=== PATIENT | female | born 1980 | race Caucasian/White ===

== ENCOUNTER 2017-04-22 12:29 | Outpatient (CLI) | payer OTHER ==
[2017-04-22 12:59] LABS: BASOPHILS # (AUTO) 0.1 10^3/uL (0.0-0.1); BASOPHILS % (AUTO) 0.6 %; EOSINOPHILS # (AUTO) 0.1 10^3/uL (0.0-0.7); EOSINOPHILS % (AUTO) 1.4 %; LYMPHOCYTES % (AUTO) 21.9 %; MEAN CORPUSCULAR HEMOGLOBIN 30.5 pg (27.0-31.0); MEAN CORPUSCULAR HGB CONC 34.6 g/dL (32.0-36.0); MEAN PLATELET VOLUME 8.8 fL (7.9-10.8); MONOCYTES # (AUTO) 0.6 10^3/uL (0.0-1.0); MONOCYTES % (AUTO) 6.3 %; NEUTROPHILS # (AUTO) 6.5 10^3/uL (1.5-6.6); NEUTROPHILS % (AUTO) 69.8 %; PLT - PLATELET COUNT 226 10^3/uL (130-450); RED BLOOD COUNT 4.25 10^6/uL (4.20-5.40); RED CELL DISTRIBUTION WIDTH 12.6 % (12.0-15.0); WHITE BLOOD COUNT 9.3 x10^3/uL (4.8-10.8)
[2017-04-22 13:03] LABS: BILIRUBIN,URINE NEGATIVE (NEGATIVE); GLUCOSE, URINE (UA) NEGATIVE (NEGATIVE); KETONES,URINE (UA) NEGATIVE (NEGATIVE); LEUKOCYTE ESTERASE, URINE NEGATIVE (NEGATIVE); NITRITE,URINE NEGATIVE (NEGATIVE); OCCULT BLOOD,URINE NEGATIVE (NEGATIVE); PROTEIN,URINE NEGATIVE (NEGATIVE); UROBILINOGEN,URINE 0.2 (NORMAL) E.U./dL (NORMAL)
[2017-04-22 13:10] LABS: CLARITY,URINE CLEAR (CLEAR)
[2017-04-22 13:11] LABS: BACTERIA,URINE Rare /HPF (None Seen); RBC,URINE 0-5 /HPF (0-5); SQUAMOUS EPITHELIAL CELL,UR MANY Squamous (<= Few)
[2017-04-23 13:21] LABS: HIV AG/AB 4TH GEN NON-REACTIVE (NON-REACTIVE)
[2017-04-23 13:36] LABS: HEPATITIS B SURFACE ANTIGEN NON-REACTIVE (NON-REACTIVE)
== END 2017-04-22 12:30 | disposition home or self-care (01) ==
LOC: LAB 12:29
PROVIDERS: ATTEND Nurse Practitioner Obstetrics & Gynecology
DX: O09.521 Supervision of elderly multigravida, first trimester (principal); Z36.9 Encounter for antenatal screening, unspecified
CPT/HCPCS: 36415; 81001; 81599; 85025; 86592; 86762; 86850; 86900; 86901; 87340; 87389

== ENCOUNTER 2017-05-04 10:32 | Outpatient (CLI) | payer SELFPAY | END 2017-05-04 10:33 | disposition home or self-care (01) | LOC: LAB 10:32 | DX: Z36.9 Encounter for antenatal screening, unspecified (principal); O09.521 Supervision of elderly multigravida, first trimester ==

== ENCOUNTER 2017-07-12 07:34 | Outpatient (CLI) | payer OTHER ==
--- NOTE | 2017-07-12 11:25 | Ultrasound Report ---
OB ULTRASOUND: 07/12/2017 CLINICAL INDICATION: anatomy. TECHNIQUE: Real-time scanning was performed with dermatology sales representative static images obtained. LAST MENSTRUAL PERIOD: --unsure Clinical Age: -- US Age: 22 weeks 0 days EFW Hadlock: 488 grams EFW% Hadlock: -- Heart Rate: 137 bpm EDC: -- US EDC: 11/15/2017 BPD Hadlock: 21 weeks 3 days; Mean mm 51 HC Hadlock: 21 weeks 5 days; Mean mm 194 AC Hadlock: 22 weeks 5 days; Mean mm 178 FL Hadlock: 21 weeks 6 days; Mean mm 37 Presentation: variable Placental Location: posterior Cervical Length: TA 4.8 cm Amniotic Fluid: BOSTON 17.0 cm; subjectively normal; MVP 4.9 cm FINDINGS There is a single viable intrauterine gestation, in variable position. heart rate is 137 BPM. The placenta is posterior, without evidence of previa. Amniotic fluid volume is subjectively normal, with the deepest pocket of 4.9 cm. By size, the fetus measures 22 weeks 0 days (uncertain LMP). The following anatomic structures were visualized and appear normal: The intracranial contents, including the ventricles and posterior fossa; the lips and orbits; the spine; the heart, including 4 chamber view and outflow tracts, and diaphragm; the abdominal contents, including the stomach, the bilateral kidneys, and urinary bladder, as well as a normal 3 vessel cord insertion; 4 limbs. No free fluid or adnexal lesion is appreciated. IMPRESSION: SINGLE VIABLE INTRAUTERINE GESTATION, MEASURING 22 WEEKS 0 DAYS BY SIZE. NORMAL ANATOMIC SURVEY. TD: 07/12/2017 10:13 [facility]
== END 2017-07-12 07:35 | disposition home or self-care (01) ==
LOC: DI 07:34
PROVIDERS: ATTEND Nurse Practitioner Obstetrics & Gynecology
DX: Z36.0 Encounter for antenatal screening for chromosomal anomalies (principal); Z3A.22 22 weeks gestation of pregnancy
CPT/HCPCS: 76811

== ENCOUNTER 2017-08-09 08:14 | Outpatient (CLI) | payer OTHER ==
[2017-08-09 09:38] LABS: HGB - HEMOGLOBIN 11.2 g/dL (12.0-16.0); MEAN CORPUSCULAR HEMOGLOBIN 31.4 pg (27.0-31.0); MEAN CORPUSCULAR HGB CONC 34.5 g/dL (32.0-36.0); MEAN CORPUSCULAR VOLUME 91.1 fL (81.0-99.0); MEAN PLATELET VOLUME 9.1 fL (7.9-10.8); RED BLOOD COUNT 3.56 10^6/uL (4.20-5.40); RED CELL DISTRIBUTION WIDTH 13.2 % (12.0-15.0); WHITE BLOOD COUNT 9.8 x10^3/uL (4.8-10.8)
== END 2017-08-09 08:15 | disposition home or self-care (01) ==
LOC: LAB 08:14
PROVIDERS: ATTEND Registered Nurse
DX: Z34.82 Encounter for supervision of other normal pregnancy, second trimester (principal)
CPT/HCPCS: 36415; 82950; 85027; 86850

== ENCOUNTER 2017-10-14 10:44 | Outpatient (CLI) | payer OTHER | END 2017-10-14 10:45 | disposition home or self-care (01) | LOC: LAB.R 10:44 | PROVIDERS: ATTEND Registered Nurse | DX: Z34.83 Encounter for supervision of other normal pregnancy, third trimester (principal) | CPT/HCPCS: 87081 ==

== ENCOUNTER 2017-11-04 10:42 | Outpatient (CLI) | payer OTHER | END 2017-11-04 10:43 | disposition home or self-care (01) | LOC: LAB.R 10:42 | PROVIDERS: ATTEND Registered Nurse | DX: R82.99 Other abnormal findings in urine (principal) | CPT/HCPCS: 87086 ==

== ENCOUNTER 2017-11-05 19:20 | Inpatient (IN) | payer OTHER ==
[2017-11-05] MEDS ORDERED: LACTATED RINGERS 1,000 ML IV ONE (21:20)
[2017-11-05] MEDS ORDERED: ONDANSETRON 4 MG/2 ML VIAL IVP PRN ×2 (21:22→23:08)
[2017-11-05] MEDS ORDERED: OXYTOCIN/SODIUM CHLORIDE 250 ML IV ONE (21:22)
[2017-11-05] MEDS ORDERED: SODIUM CHLORIDE FLUSH 0.9% 10 ML SYRINGE IVP PRN (21:22)
[2017-11-05] MEDS ORDERED: fentaNYL 100 MCG/2 ML VIAL IVP PRN (21:22)
--- NOTE | 2017-11-05 21:28 | HISTORY & PHYSICAL EXAMINATION ---
Admit History - Instructions [place]/Slash: -Left hand click circles element as positive or present. -Right hand click slashes element as negative or not present. - Visit Reason Visit Reason: Contractions (beginning @ 1500, progressively worse since that time) - : 6 Parity: 3 Premature: 0 Ectopic: 0 : 3 Care: positive: [facility] Risk/History: positive: None Complications This : positive: Other (severe anxiety) Smoking Status: Never smoker - Mother's Labs Mother's Blood Type: positive: O Mother's RH: positive: Positive GBS: positive: Group B Step Negative Rubella Status: positive: Immune Meds/Allgy - Home Medications Home Medications: Ambulatory Orders Medication Instructions Recorded Confirmed Cephalexin [Keflex] 500 mg PO Q6H #28 capsule 08/10/15 Ibuprofen [Motrin] 400 mg PO Q6H PRN #30 tablet 08/10/15 - Allergies Allergies/Adverse Reactions: Allergies Allergy/AdvReac Type Severity Reaction Status Date / Time No Known Drug Allergies Allergy Verified 08/10/15 08:02 Review of Systems - Constitutional Constitutional: reports: Fatigue. denies: Fever, Chills - Eyes Eyes: denies: Pain, Blurred vision, Spots in vision - Cardiovascular Cariovascular: denies: Irregular heart rate, Palpitations, Chest pain - Respiratory Respiratory: reports: SOB with exertion. denies: Cough, SOB at rest - Gastrointestinal Gastrointestinal: reports: Abdominal pain (described as uterine contractions). denies: Constipation, Diarrhea, Change in bowel habits, Nausea, Vomiting - Genitourinary Genitourinary: reports: Frequency, Urgency. denies: Dysuria - Musculoskeletal Musculoskeletal: denies: Muscle pain, Back pain, Muscle aches, Stiffness - Integumentary Integumentary: denies: Rash, Pruritis, Lesions - Neurological Neurological: denies: General weakness, Focal weakness, Headache, Dizziness - Psychiatric Psychiatric: reports: Depression, Anxiety - All Other Systems All Other Systems: reports: Other (+FM; UCs progressively painful; no LOF/VB) Physical - Abdominal Exam Vital Signs: Temp Pulse Resp BP Pulse Ox 36.8 C 91 18 133/76 H 98 11/05/17 19:42 11/05/17 19:42 11/05/17 19:42 11/05/17 19:42 11/05/17 19:42 Contraction Frequency (min/apart): 2-3 Contraction Intensity: positive: Moderate Uterine Resting Tone: positive: Soft - Monitoring Heart Rate Baseline: 130 Strip Review: positive: Category I - Presentation Presentation: positive: Vertex - Vaginal Exam Membranes: positive: Membranes intact Dilation (in cm): 3 Effacement (%): 50 Station: positive: -3 Cervical Position: positive: Posterior - Speculum Exam Speculum Exam Performed: positive: No Findings: negative: Gross leak - Other Notes Labor Progress Note/Additional Text: Ivory Dougherty is a 37 y/o @ 38w3d by first trimester US, who presents w/ complaint of uterine contractions beginning @ 1500, becoming progressively worse over the course of the past 2.5 hours. She denies LOF/VB. She is eager to have an epidural placed, as she states she cannot cope w/ her present discomfort. She is accompanied by her , Ghanshyam, who is watching television. Ivory's has been complicating by severe anxiety & depression, for which she has declined counseling & has intermittently taken SSRI/buspirone. She has elected to abstain from medication @ this time because she does not like the way that it makes her feel. Her has been otherwise uncomplicated & her laboratory evaluations have all been WNL. She had normal NIPT for her AMA status. 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 [place] FamHx: Sister w/ endometriosis PE: GEN: AAOX3, WAILING GRAVID FEMALE HEENT: GROSSLY NORMOCEPHALIC, ATRAUMATIC RESP: LUNGS B/L CTA T/O CARDIAC: RRR NLS1S2, NO MURMUR GI: GRAVID, TENDER TO PALPATION, MODERATE CONTRACTIONS PALPABLE; LIE LONGITUDINAL, PRESENTATION CEPHALIC, EFW 7.5# OB: EFM: BL 130BPM +ACCELS, NO DECELS, MOD JOSH; TOCO: UTERINE CONTRACTIONS Q 2- 3 MIN X60 SECONDS, PALPABLY MODERATE, SVE 3/50/-3 POSTERIOR, MEDIUM, IBOW : NO LESIONS, NO NOTABLE EXUDATE MS: FROM T/O, NO DEFORMITY, +3 B/L PEDAL EDEMA NEURO: NO FOCAL DEFICIT SKIN: WARM, WELL-PERFUSED, C/D/I, TATTOOS, NO OTHER LESIONS PSYCH: EXTREMELY ANXIOUS & AGITATED, WAILING IN PAIN; @ BEDSIDE, LARGELY DISENGAGED Plan for Labor - Plan For Labor I expect patient to be DC'd or transferred within 96 hours.: Yes Plan for Labor: 1. Admit to inpatient status 2. Epidural anesthesia now per pt request, N2O consent reviewed, PARQ held & pt to self-administer prior to epidural placement 3. Echevarria catheter placement once comfortable w/ epidural anesthesia 4. CBC/clot to hold 5. Reassess cervical status 2 hours s/p epidural placement, earlier PRN; if no cervical change, reviewed augmentation w/ pt, will AROM w/ descent or utilize Pitocin if station still high 6. Reviewed plan of care w/ pt, partner, RN @ bedside; all in agreement, without concerns; Dr. Flaquito DO, back-up HAND BOBBIN CLEANER, apprised of clinical scenario.
[2017-11-05 21:45] LABS: BASOPHILS % (AUTO) 0.4 %; EOSINOPHILS # (AUTO) 0.1 10^3/uL (0.0-0.7); EOSINOPHILS % (AUTO) 0.8 %; HGB - HEMOGLOBIN 11.3 g/dL (12.0-16.0); LYMPHOCYTES # (AUTO) 2.1 10^3/uL (1.5-3.5); LYMPHOCYTES % (AUTO) 18.5 %; MEAN CORPUSCULAR HEMOGLOBIN 28.4 pg (27.0-31.0); MEAN CORPUSCULAR HGB CONC 33.2 g/dL (32.0-36.0); MEAN CORPUSCULAR VOLUME 85.8 fL (81.0-99.0); MEAN PLATELET VOLUME 9.7 fL (7.9-10.8); MONOCYTES % (AUTO) 8.6 %; NEUTROPHILS # (AUTO) 8.1 10^3/uL (1.5-6.6); NEUTROPHILS % (AUTO) 71.7 %; PLT - PLATELET COUNT 234 10^3/uL (130-450); RED BLOOD COUNT 3.97 10^6/uL (4.20-5.40); RED CELL DISTRIBUTION WIDTH 13.3 % (12.0-15.0); WHITE BLOOD COUNT 11.3 x10^3/uL (4.8-10.8)
[2017-11-05] MEDS ORDERED: ACETAMINOPHEN 325 MG TABLET PO SCH (22:00)
[2017-11-05] MEDS: SODIUM CHLORIDE FLUSH 0.9% 10 ML SYRINGE IVP SCH (22:20)
[2017-11-05] MEDS ORDERED: BUPIVACAINE 0.25% PF 10 ML VIAL ONE (22:31)
[2017-11-05] MEDS ORDERED: ePHEDrine 50 MG/ML VIAL IVP ONE (22:31)
[2017-11-05] MEDS ORDERED: fent/BUPIV 2 MCG/0.125% 250 ML EP ONE (22:32)
[2017-11-05] MEDS ORDERED: LACTATED RINGERS 500 ML IV ONE (23:08)
[2017-11-05] MEDS ORDERED: ePHEDrine 50 MG/ML VIAL IVP PRN (23:08)
[2017-11-05] MEDS ORDERED: fent/BUPIV 2 MCG/0.125% 250 ML EP PRN (23:08)
[2017-11-05] MEDS ORDERED: NALOXONE 0.4 MG/ML VIAL IVP PRN (23:08)
[2017-11-05] MEDS ORDERED: NALBUPHINE 10 MG/ML AMP IVP PRN (23:08)
[2017-11-05] MEDS: LACTATED RINGERS 1,000 ML IV SCH (23:37)
[2017-11-06] MEDS: LACTATED RINGERS 1,000 ML IV SCH ×2 (04:21→07:40)
[2017-11-06] MEDS ORDERED: CITRIC ACID/SODIUM CITRATE 15 ML UDC PO ONE (07:36)
--- NOTE | 2017-11-06 07:42 | PROVIDER PROGRESS NOTE ---
Labor Progress Note - Uterine Monitoring Uterine Monitoring Mode: positive: External toco Contraction Frequency (min/apart): 2-5 Contraction Intensity: positive: Moderate to strong Uterine Resting Tone: positive: Soft - Monitoring Monitor Mode: positive: External ultrasound Heart Rate Baseline: 145 Heart Rate Variability: positive: Moderate (6-25 bmp) Accelerations: positive: Present, 15x15 Decelerations: positive: Variable (to suzette in 60s), Prolonged (>2x10 min ) (3 minutes to suzette in 80s) Strip Review: positive: Category II - Vaginal Exam Dilation (in cm): 4 Effacement (%): 50 Station: -3 Cervical Position: Posterior - Labor Progress Note Labor Progress Note/Additional Text: S: Ivory is comfortable w/ her epidural in place. She is irritable at having been awakened during a deceleration for repositioning and SVE. Ghanshyam is present @ the bedside. O: AAOx3, NAD WA gravid female VSS EFM BL 145bpm, + accels, prolonged decel over 3 minutes to suzette in 80s w/ return to baseline w/ repositioning, followed almost immediately by variable decel to 60s w/ return to baseline over 60 seconds, mod alexandra TOCO: UCs q2-6 minutes SVE: 4/50/-3, posterior A: 37 y/o @ 38w4d by early first trimester US, dysfunctional labor pattern FHTs cat II w/ prolonged deceleration & steeper deceleration thereafter, unable to AROM secondary to high station Inadequate labor IBOW, GBS negative Adequate pain control w/ epidural anesthesia P: 1. Reviewed clinical scenario w/ pt & partner & reviewed options for management at this time, which include surgical intervention in non-emergent fashion vs. attempt to augment & close monitoring for distress w/ potential for more emergent surgical intervention 2. Reviewed augmentation options, which are, at this time, limited only to slow titration of Pitocin infusion 3. Reviewed FHT decelerations & implications/possible etiologies 4. Pt elects primary LTCS @ this time & declines attempts to augment. Discussed clinical scenario w/ Dr. Marianna Huddleston DO, back-up DOCUMENT CONTROLLER, who is in agreement with this plan; plan sterilization per pt request @ time of surgery; anesthesia & OR team notified, Peds notified to attend delivery.
[2017-11-06] MEDS ORDERED: ceFAZolin 1 GM VIAL IVP STA (07:48)
[2017-11-06] MEDS ORDERED: CITRIC ACID/SODIUM CITRATE 15 ML UDC PO SCH (07:49)
[2017-11-06] MEDS ORDERED: ceFAZolin 3 GM/20 ML SYRINGE IVP ONE (07:52)
[2017-11-06] MEDS ORDERED: ceFAZolin 1 GM in SODIUM CHLORIDE 0.9% MINIBAG 100 ML IV SCH (08:00)
[2017-11-06] MEDS ORDERED: ceFAZolin 2 GM/50 ML 2 GM/50 ML BAG IV SCH (08:00)
[2017-11-06] MEDS ORDERED: TERBUTALINE 1 MG/ML VIAL SUBQ ONE (08:04)
[2017-11-06] MEDS ORDERED: TERBUTALINE 1 MG/ML VIAL SUBQ SCH (08:06)
[2017-11-06] MEDS ORDERED: LACTATED RINGERS 400 ML IV ONE (08:37)
[2017-11-06] MEDS ORDERED: LACTATED RINGERS 1,000 ML IV ONE (09:05)
[2017-11-06] MEDS ORDERED: OXYTOCIN/SODIUM CHLORIDE 250 ML IV ONE (09:56)
[2017-11-06] MEDS ORDERED: MAGNESIUM HYDROXIDE 2,400 MG/30 ML UDC PO PRN (09:56)
[2017-11-06] MEDS ORDERED: LORazepam 2 MG/ML VIAL IVP PRN (10:01)
[2017-11-06] MEDS ORDERED: METHYLERGONOVINE 0.2 MG/ML AMP IVP ONE (10:21)
--- NOTE | 2017-11-06 10:22 | DELIVERY NOTE ---
Delivery Note - Labor Labor: positive: Spontaneous - Delivery Method Delivery Method: positive: Primary - Presentation Presentation: positive: Vertex, JIM - right occiput anterior - Nuchal Cord Nuchal Cord: positive: Present (x1), Reduced - Amniotic Fluid Description Amniotic Fluid Description: positive: Clear - Episiotomy Type Episiotomy Type: positive: None - Laceration Laceration: positive: None - Delivery Outcome Delivery Outcome: positive: Livebirth - [place] sex: positive: Male : 8 : 9 - Cord Cord: positive: 3 vessels - Placenta Placenta: positive: Manual removal - Estimated Blood Loss Estimated Blood Loss (in cc): 1,000 - Post Delivery Events Post Delivery Events: positive: No post delivery events - Delivery Comments (Free Text/Narrative) Delivery Comments (Free Text/Narrative): Date of Operation: 11/06/2017 Surgeon: Marianna Huddleston DO, FACOG Supervisor Cold Rolling: Sepideh TABOR Special Education Paraprofessional: Abraham Suazo CRNA Anesthesia: Epidural Pre-Op Dx: 1. 37 yo with a 38w4d IUP 2. Nonreassuring heart tones 3. Desired permanent sterilization Post-op Dx: 1. 37 yo with a 38w4d IUP 2. Nonreassuring heart tones 3. Desired permanent sterilization Procedures: 1. Primary Delivery 2. Bilateral salpingectomy Findings: 1. Normal uterus, fallopian tubes and ovaries 2. Left paratubal cyst 3. Apgars 8/9 4. Weight 7 lbs 11 oz, viable male fetus, VTX 5. Nuchal cord x 1 reduced Specimens: 1. Placenta 2. Cord gases 3. Cord blood 4. Bilateral fallopian tubes Drains: 1. Echevarria catheter to gravity 2. Prevena wound vac EBL: 1000 mL Complications: None Consultation number: [id number] Operative report number: [id number]
--- NOTE | 2017-11-06 10:41 | MISCELLANEOUS PROVIDER NOTE ---
Miscellaneous Provider Note - - Note: Anesthesia post c section: Called to provide anesthesia for a c section on a 37 year old with non reassuring heart beats. Indwelling continuous labor epidural in and functioning well. Pt obviously nervous and anxious, states she doesn't want to hear or see anything, doesnt want me to discuss anything about the anesthetic. I told her risks, benefits and possible complications and she repeated to not tell her anything. I explained it to her and he seemed to understand and agree. I dosed the epidural in 5 ml increments of 2% MPF lidocaine for a total of 20 ml and took patient to the OR. Her analgesia level was at least at T-6 dermatome and stated she could not feel anything on her abdomen. I checked using a nerve stimulator and testing with a 100 Hz tetanus with no observation of pain. Pt was prepped and cried during the entire prep, draped and Dr. Huddleston checked her analgesia with an Adson tweezer, where the patient said she felt a twinge. I gave her 5 ml more of 2% MPF lidocaine and eventually she was unble to feel the tweezer. As soon as Dr. Huddleston began pusing on her abdomen she began wailing and was unble to console. I gave her 100 mg nas IV ketamine which seemed to calm her down for the delivery. When Dr. Williamson began placing the uterus back in to the abdominal cavity the patient began wailing again, I gave her 2 mg IV versed times 2 and 5mg ketamine. She appeared to be having some pain, grimacing/wailing, so I gave her 100 mcg fentany. She continued to wail during the entire surgical procedure and I decided not to give her any more IV drugs, being afrai I may create hypotension/apnea. When the procedure was complete I gave her 2 mg MPF morphine in to the epidureal (for post op pain) and the patient was moved to the [facility] with mask oxygen. She was then turned on her side and the epidural was removed with the tip intact and transferred to the OB recovery are, all the while she continued to wail, not answering any questions but maintaining her airway and breathing oxygen via a simple mask at 10 LPM. She finally was able to nod yes/no in recovery after about 15 minutes. Vital signs were stable and she eventually was given her baby and the bonding process began.
[2017-11-06] MEDS: oxyCODONE 5 MG TABLET PO PRN ×3 (12:28→20:24)
[2017-11-06] MEDS: CELECOXIB 100 MG CAPSULE PO SCH (12:29)
[2017-11-06] MEDS: SIMETHICONE CHEW 80 MG TABLET PO SCH ×2 (14:24→17:37)
[2017-11-06] MEDS: ACETAMINOPHEN 500 MG TABLET PO SCH (16:01)
--- NOTE | 2017-11-06 17:43 | CONSULTATION NOTE ---
DATE OF SERVICE: 11/06/2017 Physician: Marianna Huddleston DO FACOG IDENTIFICATION: This is a 37-year-old G6, P2-0-3-2, with a 38- 4/7 week intrauterine . EDC is 11/16/2017, changed by 9-week ultrasound. HISTORY OF PRESENT ILLNESS: I was consulted by chute greaser Umair Colvin today. Ivory is a patient of [facility]. Ivory presented to labor and delivery last night with complaints of worsening contractions. Cervical examination revealed that she was 3 cm dilated, 50% effaced, and -3 station. She is melissa every 2-3 minutes lasting about 60 seconds. Baseline in the 130s. heart tones were category 1. Ivory was admitted to the hospital where she spontaneously contracted. This morning, however, at 7:00 she had a spontaneous late deceleration down to the 80s lasting about 5 minutes with another late deceleration with a variable component 1 minute later down to the 60s with resolution within a minute. On examination, Ivory was melissa every 2-5 minutes and cervical examination revealed that she was 4 cm dilated, 50% effaced, and -3 station. Cervix was posterior. Given this concerning prolonged late deceleration in the face of a cervix remote from delivery, it is my recommendation that she undergo a delivery. I discussed with Ivory indication for delivery. I attempted to discuss with her the risks, benefits, and expectations for her delivery, but she currently told me twice that she did not want to hear anymore of the conversation. She just wanted to proceed with surgery. (Normally I would have discussed the risks, benefits, alternatives and expectations of surgery. This discussion includes the risks of hemorrhage, infection and inadvertant laceration, cauterization and ligation of the adjacent bladder, intestines and ureters.) I also asked Ivory if I should just explain the surgery to her and she declined. Ivory was also noted to have a desire for permanent sterilization. This was discussed with Ivory and a consent for tubal sterilization was signed on 09/28/2017. Ivory has verbalized her desire to be sterilized. She understands that this is meant to be a permanent surgery and that there are other options for control available to her including control pills, patch and IUD as well as vasectomy. She understands that this procedure is irreversible but there was a less than 1-2% chance of an ectopic . After Ivory's questions were answered to her satisfaction, she verbalized her desire to proceed with both a delivery as well as a bilateral tubal sterilization via bilateral salpingectomy. Consent forms have been signed. This was witnessed by the OB RN. Currently, the baby is doing well and has not had deceleration since the one that was initiated at 7:00 this morning. Currently, the strip is category 1 with baseline in the 140s and no decelerations. She is spontaneously melissa about every 2 minutes. Ivory has been given terbutaline in order to help her pain. Ivory did receive an epidural earlier this intrapartum course and has been working well. Abraham Suazo has been here and is bolusing her epidural. PAST MEDICAL HISTORY 1. Depression. 2. Anxiety. PAST SURGICAL HISTORY: None. ALLERGIES: NO KNOWN DRUG ALLERGIES. MEDICATIONS 1. vitamins. 2. Ivory has not started a prescription of sertraline when asked on 10/14/2017. SOCIAL HISTORY: She denies any tobacco, alcohol or illicit drug use. She is a history instructor. Her 's name is Fede, her stepson is León. She desires to breastfeed. PAST SURGICAL HISTORY 1. TAB x3. 2. Spontaneous vaginal delivery at term, x2. PAST MEDICAL HISTORY: She had one abnormal Pap smear with spontaneous resolution and she denies any sexually transmitted diseases. FAMILY HISTORY: Sister was diagnosed with endometriosis at age 25. REVIEW OF SYSTEMS: Negative unless otherwise stated. She stated the baby is moving well and denies any vaginal bleeding or loss of fluid. She denies any fevers or chills. PHYSICAL EXAMINATION VITAL SIGNS: Temperature is 98.2, heart rate 91, blood pressure 133/76, respiration 18, O2 saturation 98% on room air. GENERAL: Ivory is a well-developed, well-nourished, female who appears to be her stated age. She is alert and oriented x3. Ivory does look as if she is in some amount of discomfort secondary to contractions. ABDOMEN: Gravid, nontender. Estimated weight is 8-1/2 pounds. CERVICAL EXAMINATION: Showed cervix had dilated to 4 cm, 50% effacement and -3 station, posterior. Currently, heart tones with a baseline in the 140s and category 1 tracing. There are no current decelerations. Contractions have spaced out to more than 5 minutes after terbutaline was given. LABORATORY STUDIES: laboratories reveal that she is O positive, antibody screen is negative. Pap smear is negative for gonorrhea and chlamydia. HIV is nonreactive, as well as screen for syphilis and hepatitis B surface antigen. Rubella is immune. One-hour GTT is 131. GBS is negative. DIAGNOSTIC STUDIES: anatomical survey was consistent with dates and within normal limits. Placenta was noted to be posterior without evidence of previa. BOSTON was subjectively normal with a MVP of 4.9 cm. A 3-vessel umbilical cord was noted. Transabdominal cervical length was 4.8 cm. ASSESSMENT 1. A 37-year-old G6, P2-0-3-2 with a 38-4/7 week intrauterine . 2. Nonreassuring heart tones. 3. Desires permanent sterilization. PLAN 1. We will proceed to a delivery as well as a bilateral salpingectomy. 2. Consent forms have been signed. 3. We will give Ivory cefazolin 2 grams IV for postoperative cellulitis prophylaxis. 4. Anticipate using the Prevena wound VAC for maximal healing. TD: 11/06/2017 08:39 [place]
[2017-11-06] MEDS: DOCUSATE SODIUM 100 MG CAPSULE PO SCH (21:03)
--- NOTE | 2017-11-06 23:05 | OPERATIVE REPORT ---
DATE OF SERVICE: 11/06/2017 SURGEON: Marianna Huddleston DO, FACOG. LINKER UP: Sepideh Colvin CNM, DIGITAL RECRUITER ACADEMIC HOSPITALIST: Abraham Suazo CRNA. ANESTHESIA: Epidural PREOPERATIVE DIAGNOSES 1. A 37-year-old G6, P2-0-3-2, at 38 and 4/7 week intrauterine . 2. Nonreassuring heart tones. 3. Desired permanent sterilization. POSTOPERATIVE DIAGNOSIS 1. A 37-year-old G6, P2-0-3-2, at 38 and 4/7 week intrauterine . 2. Nonreassuring heart tones. 3. Desired permanent sterilization. PROCEDURE 1. Primary delivery. 2. Bilateral salpingectomy. FINDINGS 1. Normal uterus, fallopian tubes, and ovaries. 2. Left paratubal cyst. Apgars 8 and 9 at 1 and 5 minutes respectively. Viable male in vertex presentation with the weight of 7 pounds 11 ounces. 3. Nuchal cord x1 loose, easily reduced. SPECIMENS 1. Placenta. 2. Cord gases. 3. Cord blood. 4. Bilateral fallopian tubes. DRAINS 1. Echevarria catheter to gravity. 2. Prevena wound VAC. ESTIMATED BLOOD LOSS: 1000 mL COMPLICATIONS: None. BRIEF HISTORY: This is a patient at [facility], who presented in early active labor. She was admitted to the hospital , given epidural for pain control. At about 7:00 this morning there were signs of nonreassuring heart tones. There was a late deceleration lasting for about 5 minutes going down to the 80s. About a minute later, she had another late deceleration now with a variable component going down to the 60s. This deceleration lasted for about a minute. Heart tones after the 2 decelerations were reassuring that they were reactive, category 1. Cervical examination revealed that the patient was still remote from delivery at 4 cm dilation, 50% effacement and -1 station. I recommended to her that we proceed to a delivery since I did not think that the fetus would tolerate labor due to the nonreassuring heart tones. I did discuss with the patient the indications for this operation. She declined to hear the rest of the conversation with regard to the risks, benefits , and expectations. This was declined by the patient x2. I did offer to discuss this with her , but she declined this as well. Should she have wanted to have the full discussion, I would have described to her the risks including hemorrhage, infection and damage to surrounding organs, which may include, but not limited to an inadvertent laceration cauterization or ligation of the adjacent intestines, ureters, and bladder. There will also be a chance of a blood clot and nerve damage. The patient did verbalize her desire for permanent sterilization. I was able to discuss with her that sterilization was not her only form of contraception, and she may have control pills, the patch and the IUD as well as vasectomy. The patient understood that I would be removing the fallopian tubes in its entirety since more and more research is currently showing that fallopian tubes have a component in the development of ovarian carcinoma. In addition, the surgery is meant to be permanent and irreversible and that there is less than a 1-2% chance of ectopic after this procedure is performed. After all of the patient's questions were answered to her satisfaction, she verbalized her desire to proceed to both the delivery as well as the bilateral salpingectomy for sterilization. Consent forms were signed. OPERATION IN DETAIL: The patient was identified and consented, taken to the operating room where IV, Echevarria and epidural access were already in place. She was then transferred to the operating room table. Sequential compression devices were placed on the lower extremities and turned on. The patient was already receiving epidural boluses prior to the transfer to the operating room. The patient was then prepped and draped in normal sterile fashion in dorsal supine position with a leftward tilt. Skin testing revealed that the epidural anesthesia was satisfactory. A timeout was then performed which quickly identified the patient, the site of the procedures and the procedures themselves. Pfannenstiel skin incision was first made approximately 2 fingerbreadths above the level of the pubic symphysis. It was carried through the underlying layer of fascia with electrocautery. At this point in time, the patient began to moan uncontrollably. She would not answer questions as to what her discomfort was. She did give indication that her discomfort was not due to pain. Her epidural was bolused again at this point in time. Surgery continued. The fascia was then nicked in midline and extended laterally. The fascia was then dissected off the rectus muscles inferiorly and superiorly. The patient again started to moan. She did not have any pain, but had moaning. She was given ketamine as well as Versed. She seemed to improve after these medications. The procedure was then continued. The rectus muscles were then bluntly in the midline and the peritoneum entered bluntly as well. This incision was then extended superiorly and inferiorly. A bladder flap was then created by dissecting vesicouterine peritoneum. In a transverse U-shaped fashion, the hysterotomy was made in the lower uterine segment. Amniotomy revealed clear fluid. With the help of fundal pressure, the 's head delivered easily and without difficulty through the hysterotomy. Nuchal cord x1 was noted and reduced. The nose and mouth were suctioned with a bulb syringe. The rest of the infant delivered easily without difficulty through the hysterotomy. The umbilical cord doubly clamped and cut and the infant was then handed off to Dr. Lewis the on-call farm mortgage agent. Cord gases, and cord blood were obtained. The uterus was then internally massaged and placenta delivered manually. Uterus was then delivered on the abdomen and cleared of all clots and debris. There was some amount of atony despite the use of IV Pitocin. One dose of Methergine was given to the patient. Uterine tone was much improved at this point. The hysterotomy was closed with 2 sutures of 0 Vicryl, first in a running locked fashion and imbricating fashion using Lembert stitch. Two small areas of bleeding were continued, which were corrected with a single interrupted stitch of 0 Vicryl. Hemostasis was noted. Attention was then turned towards the bilateral tubal sterilization. The left fallopian tube was first identified and followed to its fimbriated end. An approximately 1.5 cm paratubal cyst was noted at the distal portion of the fallopian tube. The left fallopian tube was then cauterized and excised using the LigaSure. Hemostasis was noted on the sites of the excision. The fallopian tube was then handed off the field. In a similar fashion, the right fallopian tube was identified and then excised. Hemostasis was noted. The uterus was then inspected and found to be hemostatically stable. Uterus was then replaced back into the abdomen. The abdomen was then copiously irrigated and found to be hemostatically stable. The peritoneum was then closed with a single stitch of 2-0 Vicryl. The same stitch was used to reapproximate the rectus muscles. Fascia was then closed with a running stitch of 0 Vicryl. Ping's fascia was then reapproximated with single interrupted stitches of 0 Vicryl. Skin was then closed with a 4-0 Monocryl subcuticular fashion and a Prevena wound VAC was then placed on top of the incision. This was turned on. The patient tolerated the procedure well, but continued to moan. She could not verbalize what the etiology of her discomfort. I suspect that this is a function of a mood disorder. She was taken to [facility] in stable condition. We will continue to give aggressive pain control for the patient including around- the-clock Celebrex and acetaminophen. Oxycodone will be available to her, as well as Ativan. All sponge, lap, and needle counts were correct x2 per nurse's report. TD: 11/06/2017 10:38 MTDD
[2017-11-07] MEDS: oxyCODONE 5 MG TABLET PO PRN ×6 (01:13→22:49)
[2017-11-07] MEDS: CELECOXIB 100 MG CAPSULE PO SCH ×3 (01:14→21:08)
[2017-11-07] MEDS: ACETAMINOPHEN 500 MG TABLET PO SCH ×3 (01:14→18:35)
--- NOTE | 2017-11-07 08:06 | PROVIDER PROGRESS NOTE ---
Subjective - Prog Note Date Prog Note Date: 11/07/17 Prog Note Time: 08:04 - Subjective Pt reports feeling: Improved Subjective: Patient lying in bed. Baby in bassinet at bedside. Feeling much better. Apologized for how she acted yesterday. Feeling better. Echevarria out and she has stood up. Has not ambulated nor urinated. Wondering how surgery went. Objective - Vital Signs/Intake & Output Reviewed Vital Signs: Yes Vital Signs: Vital Signs x48h Temp Pulse Resp BP Pulse Ox 11/07/17 05:44 97.7 F 76 18 98/56 L 97 11/07/17 01:00 83 18 106/54 L 96 Intake & Output: Intake & Output 11/04/17 11/05/17 11/06/17 11/07/17 23:59 23:59 23:59 23:59 Intake Total 1520.0 Output Total 1415 1500 Balance 105.0 -1500 - Objective General Appearance: positive: No acute distress Eyes Bilateral: positive: Normal inspection Abdomen: positive: Non-tender (Wound vac intact and working well. Instructions for wound vac given.) Neurologic/Psychiatric: positive: Oriented x3, Mood/affect nml - Lab Results Fish Bones: 11/05/17 21:00 Assessment/Plan - Problem List (1) delivery, delivered, current hospitalization Impression: 37 yo S/p primary CD and BS 11/06/2017, POD #1 Improved affect Normal recovery Wound vac instructions given. Discussed with the patient surgery went well and no complications. Only suture used, no pauline. Plan for today is to ambulate, urinate, shower, breast feed. If saline lock not necessary, will remove. Hopefully home tomorrow.
[2017-11-07] MEDS: SIMETHICONE CHEW 80 MG TABLET PO SCH ×3 (10:22→22:49)
[2017-11-07] MEDS: DOCUSATE SODIUM 100 MG CAPSULE PO SCH ×2 (10:22→21:09)
[2017-11-07] MEDS: SODIUM CHLORIDE FLUSH 0.9% 10 ML SYRINGE IVP SCH (22:56)
[2017-11-07] MEDS: LACTATED RINGERS 1,000 ML IV SCH (22:56)
[2017-11-08] MEDS: ACETAMINOPHEN 500 MG TABLET PO SCH ×3 (02:43→20:13)
[2017-11-08] MEDS: oxyCODONE 5 MG TABLET PO PRN ×5 (02:43→21:09)
[2017-11-08] MEDS: DOCUSATE SODIUM 100 MG CAPSULE PO SCH ×2 (08:09→21:09)
[2017-11-08] MEDS: CELECOXIB 100 MG CAPSULE PO SCH ×2 (08:09→21:09)
[2017-11-08] MEDS: SIMETHICONE CHEW 80 MG TABLET PO SCH ×3 (08:09→17:14)
--- NOTE | 2017-11-08 12:37 | PROVIDER PROGRESS NOTE ---
Subjective - Prog Note Date Prog Note Date: 11/08/17 Prog Note Time: 12:33 - Subjective Pt reports feeling: Improved Subjective: Patient lying in bed, breast feeding baby. States the pain is improving. Has not taken oxycodone. Ambulating and tolerating a regular diet. Urinating without difficulty. Desires to stay another night and go home tomorrow. Planning for the baby to be circumcised. Objective - Vital Signs/Intake & Output Reviewed Vital Signs: Yes Vital Signs: Vital Signs x48h Temp Pulse Resp BP BP Pulse Ox 11/08/17 11:19 97.9 F 76 17 113/61 100 11/08/17 10:29 98.2 F 84 16 114/66 98 11/08/17 04:44 98.4 F 89 16 110/58 L 98 Intake & Output: Intake & Output 11/05/17 11/06/17 11/07/17 11/08/17 23:59 23:59 23:59 23:59 Intake Total 1520.0 740 250 Output Total 1415 2000 Balance 105.0 -1260 250 - Objective General Appearance: positive: No acute distress Eyes Bilateral: positive: Normal inspection Abdomen: positive: Non-tender (Wound vac in place and working well) - Lab Results Fish Bones: 11/05/17 21:00 Assessment/Plan - Problem List (1) delivery, delivered, current hospitalization Impression: 37 yo S/p primary CD and BS 11/06/2017, POD #2 Normal recovery Routine care Anticipate discharge to home tomorrow. Will need to return to [facility] or Tuesday for removal of her wound vac. Home meds written for convalescence: Oxycodone. Take OTC motrin and tylenol as well as stool softeners. Call if worsening fevers, chills, abdominal pain or vaginal bleeding. Discharge summary dictated: [id number]
[2017-11-09] MEDS: oxyCODONE 5 MG TABLET PO PRN ×4 (00:37→12:21)
[2017-11-09] MEDS: ACETAMINOPHEN 500 MG TABLET PO SCH ×2 (04:13→12:22)
[2017-11-09] MEDS: CELECOXIB 100 MG CAPSULE PO SCH (08:48)
[2017-11-09] MEDS: DOCUSATE SODIUM 100 MG CAPSULE PO SCH (08:48)
[2017-11-09] MEDS: SIMETHICONE CHEW 80 MG TABLET PO SCH (09:38)
--- NOTE | 2017-11-09 09:41 | PROVIDER PROGRESS NOTE ---
Subjective - Prog Note Date Prog Note Date: 11/09/17 Prog Note Time: 09:38 - Subjective Pt reports feeling: Improved Subjective: Patient lying in bed, baby Luis E on her chest. Feeling better overall. Has decided to recover at her mother's since her bed is very high. Also her house has 30 steps. Verbalizes her desire to go home. Ambulating and tolerating a regular diet. No nausea or vomiting. Urinating without difficulty. Objective - Vital Signs/Intake & Output Vital Signs: Vital Signs x48h Temp Pulse Resp BP BP Pulse Ox 11/09/17 09:30 98.1 F 87 16 130/74 99 11/09/17 08:55 98.2 F 82 18 116/68 100 11/09/17 04:32 97.9 F 74 16 113/68 100 Intake & Output: Intake & Output 11/06/17 11/07/17 11/08/17 11/09/17 23:59 23:59 23:59 23:59 Intake Total 1520.0 740 250 Output Total 1415 2000 Balance 105.0 -1260 250 - Objective General Appearance: positive: No acute distress Eyes Bilateral: positive: Normal inspection Abdomen: positive: Non-tender (Wound vac in place and working well.) - Lab Results Fish Bones: 11/05/17 21:00 Assessment/Plan - Problem List (1) delivery, delivered, current hospitalization Impression: 37 yo S/p CD and BS, POD #3 Normal recovery Discharge to home Return Tuesday for removal of her wound vac, and in 2 weeks for an incision check No lifting >10 lbs Advance activity as tolerated Call for worsening fevers, chills, abdominal pain or vaginal bleeding Discharge Plan Disposition: 01 Home, Self Care Condition: Good Diet: Regular Activity Restrictions: Activity as Tolerated (No lifting > 10 lbs) Shower Restrictions: No Driving Restrictions: Yes (No driving) Weight Bearing: Full Weight No Smoking: If you smoke, Please STOP! Call for help.
[2017-11-09 13:38] VITALS: BP 129/72
--- NOTE | 2017-11-09 14:47 | Labor Flowsheet ---
Labor Flowsheet Datetime Report Generated by CPN: 11/09/2017 14:46 Datetime: 11/09/2017 13:24 VITAL SIGNS NBP Sys/Christiane/Mean (mmHg): 129 : 72 : 87 Pulse: 95 LaborFlag: Labor Datetime: 11/08/2017 20:09 SpO2 (%): 99 Datetime: 11/08/2017 04:52 Membrane Status: Ruptured Datetime: 11/06/2017 08:31 UTERINE ACTIVITY Monitor Mode: External Frequency (min): 2-5 Quality: Moderate Duration (sec): 20-50 Pattern: Normal: <= 5 Contractions in 10 Minutes Resting Tone (Palpate): Relaxed FHR Baseline Rate : 145 Variability: Moderate 6-25 bpm Accelerations: 15X15 Comments: decel in some nature difficult to assess Communication Comments: went to OR Datetime: 11/06/2017 08:15 Temperature (C): 37.0 ASSESSMENT A Monitor Mode: External US Decelerations: Early Category: Category I Datetime: 11/06/2017 08:09 MEDICATIONS Tocolytics: Terbutaline 0.25mg Subcutaneous Datetime: 11/06/2017 08:00 FHR Baseline Changes: Tachycardia Datetime: 11/06/2017 07:59 COMMUNICATION Communication: Provider at Bedside Datetime: 11/06/2017 07:52 Antiemetics/Antacids: Bicitra 30 ml PO Datetime: 11/06/2017 07:44 Oxygen Method: Room Air Datetime: 11/06/2017 06:59 VAGINAL EXAM Dilatation (cm): 4.0 Effacement (%): 80 Station: -3 Exam by: [email or web address] Patient Position/Activity: peanut ball removed, pt placed in semifowlers position. Datetime: 11/06/2017 05:00 Contraction Comments: pt sleeping with peanut ball in place Datetime: 11/06/2017 04:19 Cervix, Consistency: Soft Cervix, Position: Posterior Vaginal Exam Comments: cervical os to maternal right Datetime: 11/06/2017 04:18 Comfort Measures: peanut ball in place between thighs I/O Interventions: Echevarria Cath Inserted Datetime: 11/06/2017 03:00 Respirations: 16 Temperature Route: Oral Datetime: 11/06/2017 00:30 Stage of : Labor PAIN Pain Scale: 6 Pain Presence: Intermittent Pain Type: Contraction Pain Location: Abdomen Datetime: 11/05/2017 22:59 Epidural Procedure: Completed Epidural Procedure Other: Pump Started Datetime: 11/05/2017 22:40 PROCEDURE TIME OUT Procedure Verify: Correct Patient Identity; Correct Side and Site are Marked; Accurate Procedure Co nsent Form; Agreement on Procedure to be Done; Correct Patient Position; Safety Precautions Based on Patient History or Medication Use ANESTHESIA Anesthesia Plans: Epidural Epidural Positioning: Sitting Datetime: 11/05/2017 21:42 PATIENT CARE IV/Blood Work: IV Started; IV Bolus Started; IV Bolus Given ml @ 999; Labs Drawn with IV Start Consults: Anesthesia Datetime: 11/05/2017 21:30 Pain Goal: 0 Pain Relief Measures: nitrous Pain Coping: Breathing Through Contractions; Writhing Presentation 'A': Cephalic
--- NOTE | 2017-11-09 15:15 | DISCHARGE SUMMARY ---
Physician: Marianna Huddleston DO FACOG DATE OF ADMISSION: 11/05/2017 DATE OF DISCHARGE: 11/09/2017 Diagnosis on Admission: 1. 37 yo with a 38w4d IUP 2. Early active labor Diagnosis on Discharge: 1: 37 yo S/p primary Delivery 11/06/2017 2. Normal recovery HOSPITAL COURSE: This is a patient of [facility] whom we have been taking care of throughout her entire course. The patient is a 37-year-old G6, 2-0-3-2 who presented with a 38-week 4-day intrauterine with complaints of worsening contractions. The patient was found to be melissa every 2-3 minutes for 60 seconds, and a cervical examination revealed she was 3 cm dilated, 50% effaced, and -3 station. The patient was admitted to the hospital and eventually received an epidural for pain control. At about 7 o'clock in the morning on 11/06/2017 there were some significant late decelerations. The patient had one deceleration to the 80s that lasted for about five minutes. A second one shortly thereafter went down to the 60s and lasted for about a minute. Her cervical examination revealed she was 4, 50, and -3. Given the late decelerations, and that the patient was not going to deliver imminently, I recommended her to undergo a delivery. The patient was then taken to the operating room, where she underwent a primary low transverse delivery. She had a viable male with Apgars of 8 and 9 at one and five minutes, respectively. Weight was 7 pounds 11 ounces, and nuchal cord x1 was noted and reduced. The estimated blood loss was 1000 mL. Surgery was remarkable for very abnormal activity from the patient. She was very uncomfortable and had a difficult time in her intrapartum course. She decompensated multiple times with crying and moaning. This did occur during her epidural placement, which was found to be working well. During the operation itself the patient, though she denied any pain and did report that she could feel pressure, continued to moan and wail. The patient did not tell us what the origin of her discomfort was. All she did was moan and wail. In order to make sure that the patient did not feel pain, the patient was given additional doses of Versed as well as ketamine. After interviewing the patient from surgery, she states that she did not recall any of the events during her delivery. The patient's course has been unremarkable. She has been very pleasant to me and is acting appropriately. She is ambulating and tolerating a regular diet. She is urinating without difficulty, and her pain is controlled with oral medications. Lochia is normal, and she is her baby boy , Luis E, well. The patient will be discharged to home on postoperative day three, 11/09/2017. She is to see myself or one of the providers in two weeks for an incision check. She has a prescription for oxycodone for any breakthrough pain she may have. The patient will be counseled to take [id number] ibuprofen and Tylenol, and then she may take oxycodone as needed. Stool softener also would be helpful. The patient is to call us should she have any worsening fevers, chills, abdominal pain, or vaginal bleeding. TD: 11/08/2017 12:53 CARLOS
== END 2017-11-09 13:50 | disposition home or self-care (01) | DRG 766 ==
LOC: WFO 19:20 → FBP 19:21 → WFO 21:22
PROVIDERS: ADMIT Registered Nurse; ATTEND Registered Nurse
PROC: 10D00Z1 Extraction of Products of Conception, Low, Open Approach (ICD-10-PCS; principal; 2017-11-06 08:30)
PROC: 0UT70ZZ Resection of Bilateral Fallopian Tubes, Open Approach (ICD-10-PCS; 2017-11-06 08:30)
DX: O99.344 Other mental disorders complicating childbirth (principal); F41.9 Anxiety disorder, unspecified; F32.9 Major depressive disorder, single episode, unspecified; O76 Abnormality in fetal heart rate and rhythm complicating labor and delivery; O69.81X0 Labor and delivery complicated by cord around neck, without compression, not applicable or unspecified; Z30.2 Encounter for sterilization; Z3A.38 38 weeks gestation of pregnancy; Z37.0 Single live birth
CPT/HCPCS: 82803; 85025; 99212